=== PATIENT | female | born 1990 | race Caucasian/White ===

== ENCOUNTER 2020-08-27 14:32 | Outpatient (CLI) | payer BC ==
[2020-08-28 04:03] LABS: SARS-CoV-2 PCR by NAA Not Detected (NotDetected)
== END 2020-08-27 14:33 | disposition home or self-care (01) ==
LOC: CSHLAB 14:32
PROVIDERS: ATTEND Advanced Practice Midwife
DX: Z20.822 Contact with and (suspected) exposure to COVID-19 (principal)
CPT/HCPCS: 87635; U0003; U0005

== ENCOUNTER 2020-08-30 19:00 | Inpatient (IN) | payer BC ==
[2020-08-30] MEDS ORDERED: Butorphanol Tartrate 1 MG/ML VIAL SLOW IVP PRN (19:55)
[2020-08-30] MEDS ORDERED: Lidocaine 1% (PF) 30 ML VIAL SC PRN (19:55)
[2020-08-30] MEDS ORDERED: Ondansetron PF 4 MG/2 ML Vial IVP PRN (19:55)
[2020-08-30] MEDS ORDERED: hydrALAZINE 20 MG/ML VIAL SLOW IVP PRN (19:55)
[2020-08-30] MEDS ORDERED: Promethazine HCl 25 MG/ML VIAL IM PRN (19:55)
[2020-08-30] MEDS ORDERED: NS / Oxytocin 40 units/1000ml 1,000 ML IV PRN (19:55)
[2020-08-30] MEDS ORDERED: HYDROcodone/Acetaminophen 5/325 mg Tablet PO PRN ×2 (19:55)
[2020-08-30] MEDS ORDERED: Ibuprofen 800 MG TAB PO PRN (19:55)
[2020-08-30] MEDS ORDERED: Misoprostol 200 MCG TAB PR PRN (19:55)
[2020-08-30] MEDS ORDERED: Methylergonovine 0.2 MG/ML VIAL IM PRN (19:55)
[2020-08-30] MEDS ORDERED: Lactated Ringer's 1,000 ML IV SCH (20:00)
[2020-08-30 20:11] VITALS: BMI 22.3
[2020-08-30 21:05] LABS: Hemoglobin 10.2 g/dL (12.0-15.5); Mean Corpuscular HGB CONC 34.8 g/dL (32.0-36.0); Mean Corpuscular Hemoglobin 32.2 pg (27.0-33.0); Mean Corpuscular Volume 92.4 fl (81.6-98.3); Mean Platelet Volume 9.6 fl (7.4-10.4); Platelet Count 273 10x3/uL (150-450); RBC Distribution Width 12.1 % (11.5-14.5); Red Blood Cell (RBC) Count 3.17 10x6/uL (3.90-5.03); White Blood Cell (WBC) Count 9.9 10x3/uL (3.5-10.5)
[2020-08-30 21:33] LABS: Hep B Surf Ag Non-Reactive S/CO (NonReactive); Syphilis Antibody Nonreactive (Nonreactive); Syphilis Antibody Index 0.02 S/CO (<1.00 Non-Reactive)
[2020-08-30 21:34] LABS: HBSAg Index 0.18 S/CO (0-0.99)
[2020-08-30] MEDS: Misoprostol 100 MCG TAB VAG SCH (21:38)
[2020-08-31] MEDS ORDERED: Fentanyl 4 mcg/Bup 0.1% Cadd 100 ML ONE (08:23)
[2020-08-31] MEDS ORDERED: NS w/ Oxytocin 30 units 500 ML ONE ×2 (09:59→14:51)
[2020-08-31] MEDS ORDERED: Acetaminophen 325 MG TAB PO PRN (10:53)
[2020-08-31] MEDS ORDERED: Ondansetron PF 4 MG/2 ML Vial IVP PRN ×2 (10:53→15:22)
[2020-08-31] MEDS ORDERED: diphenhydrAMINE 50 MG/ML VIAL IVP PRN (10:53)
[2020-08-31] MEDS ORDERED: Naloxone HCl 0.4 mg/ml Vial IVP PRN ×2 (10:53)
[2020-08-31] MEDS ORDERED: Promethazine HCl 25 MG/ML VIAL IM PRN (10:53)
[2020-08-31] MEDS ORDERED: ePHEDrine 50 MG/ML VIAL SLOW IVP PRN (10:53)
[2020-08-31] MEDS ORDERED: Lactated Ringer's 500 ML IV PRN (10:53)
[2020-08-31] MEDS ORDERED: Communication Order-Pharmacy FS SCH (11:00)
[2020-08-31] MEDS ORDERED: Fentanyl 4 mcg/Bupivacaine 0.1% Cassette 100 ML EPIDURAL SCH (11:00)
[2020-08-31] MEDS ORDERED: NS w/ Oxytocin 30 units 500 ML IVPB PRN (11:32)
[2020-08-31] MEDS ORDERED: Lanolin Ointment 7 GM TUBE TOP PRN (15:22)
[2020-08-31] MEDS ORDERED: hydrALAZINE 20 MG/ML VIAL SLOW IVP PRN (15:22)
[2020-08-31] MEDS ORDERED: Bisacodyl 10 MG SUPP PR PRN (15:22)
[2020-08-31] MEDS ORDERED: Methylergonovine 0.2 MG/ML VIAL IM PRN (15:22)
[2020-08-31] MEDS ORDERED: Misoprostol 200 MCG TAB VAG PRN (15:22)
[2020-08-31] MEDS ORDERED: Adacel (T-DAP) 0.5 ML SYRINGE IM ONE (15:22)
[2020-08-31] MEDS ORDERED: HYDROcodone/Acetaminophen 5/325 mg Tablet PO PRN ×2 (15:22)
[2020-08-31] MEDS ORDERED: Benzocaine-Menthol 82.5 ML CAN TOP PRN (15:22)
[2020-08-31] MEDS ORDERED: Milk Of Magnesia 30 ML UDCUP PO PRN (15:22)
[2020-08-31] MEDS ORDERED: NS w/ Oxytocin 30 units 1,000 ML IV SCH (16:45)
[2020-08-31] MEDS: Ferrous Sulfate 325 MG TAB PO SCH (17:21)
[2020-08-31] MEDS: Misoprostol 100 MCG TAB VAG SCH ×2 (20:19→20:20)
[2020-08-31] MEDS: Docusate Calcium (SURFAK) 240 MG CAP PO SCH (21:16)
[2020-08-31] MEDS: Ibuprofen 800 MG TAB PO SCH (21:16)
[2020-09-01] MEDS: Ibuprofen 800 MG TAB PO SCH ×2 (05:54→12:51)
[2020-09-01] MEDS: Docusate Calcium (SURFAK) 240 MG CAP PO SCH (08:17)
[2020-09-01] MEDS: Ferrous Sulfate 325 MG TAB PO SCH (08:19)
[2020-09-01] MEDS ORDERED: Prenatal Vitamin 1 TAB PO SCH (09:00)
[2020-09-01 13:10] VITALS: TEMP 98.1
[2020-09-01 16:44] VITALS: BP 124/63
== END 2020-09-01 16:40 | disposition home or self-care (01) | DRG 807 ==
LOC: CSHLD 19:05 → CSHPP 08-31 16:10
PROVIDERS: ADMIT Obstetrics & Gynecology; ATTEND Obstetrics & Gynecology
PROC: 10D07Z6 Extraction of Products of Conception, Vacuum, Via Natural or Artificial Opening (ICD-10-PCS; principal; 2020-08-31)
PROC: 3E0P7VZ Introduction of Hormone into Female Reproductive, Via Natural or Artificial Opening (ICD-10-PCS; 2020-08-31)
PROC: 3E033VJ Introduction of Other Hormone into Peripheral Vein, Percutaneous Approach (ICD-10-PCS; 2020-08-31)
DX: O76 Abnormality in fetal heart rate and rhythm complicating labor and delivery (principal); Z20.822 Contact with and (suspected) exposure to COVID-19; Z37.0 Single live birth; Z3A.39 39 weeks gestation of pregnancy; Z90.49 Acquired absence of other specified parts of digestive tract
CPT/HCPCS: 51702; 85027; 86780; 86850; 86900; 86901; 87340; 87635; U0003; U0005